=== PATIENT | male | born 1990 | race Caucasian/White ===

== ENCOUNTER 2016-06-01 20:39 | Emergency (ER) | payer BC, OTHER ==
[~2016-06-01] VITALS: Ht 182.9 cm; Wt 81.7 kg
[2016-06-01] MEDS ORDERED: AUGMENTIN 875875 MG PO (21:12)
[2016-06-01 21:40] VITALS: BP 110/76
== END 2016-06-01 21:43 | disposition home or self-care (01) ==
LOC: ER 20:39
DX: S61.452A Open bite of left hand, initial encounter (principal); F10.99 Alcohol use, unspecified with unspecified alcohol-induced disorder; W54.0XXA Bitten by dog, initial encounter; Y93.89 Activity, other specified; Y92.89 Other specified places as the place of occurrence of the external cause; Y99.8 Other external cause status